=== PATIENT | female | born 1995 | race Caucasian/White ===

== ENCOUNTER → 2020-03-12 14:13 | Outpatient (BNVA) | payer MEDICAID, SELFPAY | PROVIDERS: Visit Provider Advanced Practice Midwife | DX: Z76.89 Persons encountering health services in other specified circumstances (principal) ==

== ENCOUNTER 2020-03-19 10:42 | Outpatient (REF) | payer MEDICAID, SELFPAY ==
[2020-03-19 11:55] LABS: MANUAL DIFF FLAG NO
[2020-03-19 12:06] LABS: Basophils Percent Auto 0.3 % (0-2); Eosinophils Absolute Auto 0.1 X10*3/uL (0.0-0.4); Eosinophils Percent Auto 1.2 % (0-4); Hematocrit 37.1 % (37-47); Hemoglobin 12.6 g/dl (12.0-16.0); Imm Gran Abs Auto 0.01 X10*3/uL (0.00-0.03); Imm Gran Pct Auto 0.2 % (0.0-0.4); Lymphocytes Absolute Auto 1.6 X10*3/uL (1.2-4.9); Lymphocytes Percent Auto 27.4 % (20-40); Mean Corpuscular Volume 91.2 fL (80-98); Mean Platelet Volume 10.7 fL (9.4-12.3); Monocytes Absolute Auto 0.4 X10*3/uL (0.1-1.2); Monocytes Percent Auto 6.5 % (2-11); Neutrophils Absolute Auto 3.8 X10*3/uL (2.0-8.3); Neutrophils Percent Auto 64.4 % (45-73); Platelet Count 218 X10*3/uL (160-400); Red Blood Count 4.07 X10*6/uL (4.20-5.50); Red Cell Distribution Width 12.6 % (11.0-16.0); White Blood Count 5.9 X10*3/uL (4.8-10.8)
[2020-03-19 12:28] LABS: Amphetamine Screen Urine Not Detected (Not Detect); Barbiturates, Urine Not Detected (Not Detect); Benzodiazepines Screen Urine Not Detected (Not Detect); Cannabinoid Screen Urine Not Detected (Not Detect); Cocaine Screen Urine Not Detected (Not Detect); Opiate Screen Urine Not Detected (Not Detect); Phencyclidine Screen Urine Not Detected (Not Detect)
[2020-03-19 13:10] LABS: Syphilis Screen Nonreactive (Nonreactive)
[2020-03-20 04:36] LABS: HBsAGNum1 0.38 S/CO (0.00-0.99); HIV AB/AG Nonreactive (Nonreactive); HIV Num 1 0.06 S/CO (0.00-0.99); Hepatitis B Surface Antigen Negative (Negative)
[2020-03-20 04:48] LABS: ~HepC Num1 0.11 S/CO (0.00-0.79); ~Hepatitis C Antibody Nonreactive (Nonreactive)
[2020-03-20 22:22] LABS: Rubella IgG Antibody 3.33 index
== END 2020-03-19 10:43 | disposition home or self-care (01) ==
LOC: HO.LAB 10:42
PROVIDERS: Visit Provider Advanced Practice Midwife
DX: Z34.90 Encounter for supervision of normal pregnancy, unspecified, unspecified trimester (principal); Z3A.00 Weeks of gestation of pregnancy not specified
CPT/HCPCS: 36415; 80307; 85025; 86762; 86780; 86787; 86803; 86850; 86900; 86901; 87086; 87340; 87389

== ENCOUNTER 2020-03-21 13:21 | Outpatient (REF) | payer MEDICAID, SELFPAY ==
--- NOTE | 2020-03-21 13:34 | US_ITS ---
EXAMINATION: OBSTETRICAL ULTRASOUND, FIRST TRIMESTER HISTORY: 24-year-old at 11.2 weeks of gestation NT screening COMPARISON: 02/20/2020 TECHNIQUE: Real time transabdominal imaging with color and M-mode Doppler. FINDINGS: A single, live IUP CRL of 43.6 mm c/w 11.2wks is noted. Heart Rate: 163 beats per minute. Normal yolk sac seen. NT was 0.7.mm. NB Present The embryo appears sonographically wnl for this GA. Both maternal ovaries are seen and appear normal. GESTATIONAL AGE: 1. Established GA: 11.2 wks 2. GA from [facility]: 11.2 wks ESTIMATED DATE OF DELIVERY: 1. Established TERESITA: 10/08/2020 2. TERESITA from [facility]: 10/08/2020 US/US OB 1T nuc measure IMPRESSION: 1. A single live IUP 2. Size equals dates 3. NT of 0.7 mm MFM Consultation: I reviewed the ultrasound findings along with significance of NT measurement. The NT of less than 3mm is generally reassuring. However, the sensitivity for T21 detection is only 60%. I reviewed the availability of serum aneuploidy screening which includes cell-free DNA and placental protein based tests. I discussed the sensitivity, false-positive rate, and other limitations associated with each test. I also reviewed the availability of invasive diagnostic tests that are associated small but definite risk of miscarriage. We also reviewed the differences between screening tests and diagnostic tests. After our discussion, she opted for the First trimester screening that is based on cell-free DNA or non-invasive testing (NIPT). The result will be faxed to your office in approximately 7 days. A follow up at 18 weeks for survey has been scheduled. Thank you very much for this referral. Majority of this visit was spent reviewing her care and counselling her in face to face time: Time spent 20 min.
== END 2020-03-21 13:22 | disposition home or self-care (01) ==
LOC: HO.US 13:21
PROVIDERS: PCP Advanced Practice Midwife; Visit Provider Advanced Practice Midwife
DX: Z34.90 Encounter for supervision of normal pregnancy, unspecified, unspecified trimester (principal); Z36.82 Encounter for antenatal screening for nuchal translucency
CPT/HCPCS: 76813

== ENCOUNTER 2020-03-26 12:35 | Outpatient (REF) | payer MEDICAID, SELFPAY | END 2020-03-26 12:36 | disposition home or self-care (01) | LOC: HO.LAB 12:35 | PROVIDERS: Visit Provider Advanced Practice Midwife | DX: Z23 Encounter for immunization (principal); O26.899 Other specified pregnancy related conditions, unspecified trimester; N63.0 Unspecified lump in unspecified breast; N83.291 Other ovarian cyst, right side | CPT/HCPCS: 88142; 90686 ==

== ENCOUNTER 2020-03-26 16:59 | Outpatient (REF) | payer MEDICAID, SELFPAY ==
[2020-03-27 02:28] LABS: CT PCR NOT DETECTED (Not Detect.); NG PCR NOT DETECTED (Not Detect.)
== END 2020-03-26 17:00 | disposition home or self-care (01) ==
LOC: HO.LNP 16:59
PROVIDERS: Visit Provider Advanced Practice Midwife
DX: Z34.80 Encounter for supervision of other normal pregnancy, unspecified trimester (principal)
CPT/HCPCS: 87491; 87591

== ENCOUNTER 2020-04-01 13:00 | Outpatient (REF) | payer MEDICAID, SELFPAY ==
--- NOTE | 2020-04-01 | US_ITS ---
EXAMINATION: US DIAGNOSTIC ULTRASOUND BREAST, RIGHT CLINICAL INFORMATION: Right breast lump felt by the referring provider at 4 o'clock. COMPARISON: None. TECHNIQUE: Targeted right breast ultrasound is performed with real-time dueñas scale imaging and color Doppler. FINDINGS: There is no focal suspicious finding. There is no solid mass, architectural abnormality, duct ectasia, or edema in the soft tissue planes. Results are discussed with the patient at time of visit. US/US breast RT limited IMPRESSION: No sonographic evidence of malignancy or other significant finding in the area of clinical concern in the right breast lower inner quadrant. ASSESSMENT: BI-RADS 1: Negative RECOMMENDATION: 1. Patient should be managed based on the clinical impression. Decision to proceed with biopsy should be based on clinical grounds and degree of clinical concern. 2. According to current [employer] guidelines patient should return for screening mammography at age of 39 years, unless clinically indicated otherwise.
== END 2020-04-01 13:01 | disposition home or self-care (01) ==
LOC: HO.MAMMO 13:00
PROVIDERS: PCP Advanced Practice Midwife; Visit Provider Advanced Practice Midwife
DX: N63.0 Unspecified lump in unspecified breast (principal)
CPT/HCPCS: 76642

== ENCOUNTER → 2020-04-22 11:42 | Outpatient (BNVA) | payer MEDICAID, SELFPAY | PROVIDERS: Visit Provider Advanced Practice Midwife | DX: Z76.89 Persons encountering health services in other specified circumstances (principal) ==

== ENCOUNTER 2020-05-16 10:15 | Outpatient (REF) | payer MEDICAID, SELFPAY ==
--- NOTE | 2020-05-16 10:19 | US_ITS ---
EXAMINATION: US OBSTETRICAL CLINICAL INFORMATION: 24-year-old at 19.2 weeks Suspected anomaly COMPARISON: 03/21/2020 TECHNIQUE: Real-time transabdominal ultrasound was performed using C1-5 megahertz transducer. FINDINGS: A single, active, fetus is seen in breech presentation. The placenta is fundal, and the amniotic fluid volume is wnl. MEASUREMENTS: 1. Biparietal Diameter: 4.2 cm; 18.5 wks 2. Occipital Frontal Diameter: 5.8 cm 3. Head Circumference: 16.2 cm; 19.0 wks 4. Abdominal Circumference: 14.6 cm; 20.0 wks 5. Femur Length: 2.94 cm; 19.1 wks 6. Humerus Length: 2.94 cm; 19.5 wks 7. Tibia Length: 2.62 cm; 19.3 wks 8. Ulna Length: 2.59 cm; 19.3 wks 9. Lateral ventricle: 0.69 cm 10. Cerebellum: 1.96 cm; 20.1 wks 11. Cisterna Magna: 0.37 cm 12. Nuchal Fold: 3.1 mm 13. Heart Rate: 158 beats per minute Rt ovary: normal Lt ovary: normal Cervical length 3.9 cm on T/A. GESTATIONAL AGE: 1. Established GA: 19.2 wks 2. GA from [facility]: 19.2 wks ESTIMATED DATE OF DELIVERY: 1. Established TERESITA: 10/08/2020 2. TERESITA from [facility]: 10/08/2020 ANATOMY: Bilateral pyelectasis ease were noted. Renal pelvises measured 0.5 cm. Ureters not visible. Urinary bladder is within normal limits. The visualized anatomy includes but not limited to: 1. Cranium: Normal 2. Intracranial anatomy: cavum septum pellucidi, lateral ventricles, choroid plexus, cerebellum, posterior fossa, third and fourth ventricles. 3. face: orbits, lip/palate, profile, nasal bone 4. Heart: four-chamber view of the heart, ventricular septum, foramen ovale, pulmonary vein, left and right outflow tracts, three-vessel view, 3 vessel trachea view, aortic and ductal arches, situs.. 5. Diaphragm: Normal 6. Abdominal wall: Normal 7. Cord Insertion: Normal 8. Spine: Cervical, thoracic, lumbar, sacral. 9. Stomach: Normal size and shape 10. Right Kidney: 0.5 cm 11. Left Kidney: 0.5 cm 12. 3 vessel cord: Normal 13. Upper extremity: Open hands, fifth digit. 14. Lower extremity: Tibia, fibula, bilateral feet. 15. Bladder: Normal 16. Genitalia: Male, patient aware US/US OB /maternal detail IMPRESSION: 1. Single, living, intrauterine with appropriate biometry. 2. Bilateral pyelectasis without hydroureter. 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 3. Normal amniotic fluid DISCUSSION: I reviewed today's ultrasound findings. We discussed the limitations of ultrasound in diagnosing aneuploidy and other congenital abnormalities. I reviewed the differences between screening test and diagnostic test. Amniocentesis was discussed and declined. I reviewed the approximate prognosis and management of the degenerative reflux. Gave her reassurance that it is a benign condition that resolves spontaneously in majority of the cases. Rarely a pediatric follow-up and evaluation may be needed. She was informed that the baseline incidence of congenital abnormalities is approximately 3-5%. Not all these conditions are diagnosable in utero. RECOMMENDATIONS: 1. A follow-up has been scheduled in 6 weeks. Thank you for allowing me to participate in her care. Visiting time 25 minutes. Majority of this visit was spent reviewing and discussing her care.
== END 2020-05-16 10:16 | disposition home or self-care (01) ==
LOC: HO.US 10:15
PROVIDERS: PCP Internal Medicine; Visit Provider Advanced Practice Midwife
DX: N83.291 Other ovarian cyst, right side (principal)
CPT/HCPCS: 76811

== ENCOUNTER → 2020-05-20 14:48 | Outpatient (BNVA) | payer MEDICAID, SELFPAY | PROVIDERS: Visit Provider Advanced Practice Midwife | DX: O35.9XX0 Maternal care for (suspected) fetal abnormality and damage, unspecified, not applicable or unspecified (principal) | CPT/HCPCS: 81002; 99212 ==

== ENCOUNTER → 2020-06-17 12:57 | Outpatient (BNVA) | payer MEDICAID, SELFPAY | PROVIDERS: Visit Provider Advanced Practice Midwife | DX: Z76.89 Persons encountering health services in other specified circumstances (principal) | CPT/HCPCS: 99212 ==

== ENCOUNTER 2020-06-27 10:34 | Outpatient (REF) | payer MEDICAID, SELFPAY ==
--- NOTE | 2020-06-27 10:39 | US_ITS ---
EXAMINATION: OBSTETRICAL ULTRASOUND, Follow up HISTORY: A 24-year-old at the 25.2 weeks of gestation Bilateral pyelectasis Size date discrepancy COMPARISON: 05/16/2020 TECHNIQUE: Real time transabdominal imaging with color and M-mode Doppler. PRESENTATION: Vertex PLACENTA LOCATION: Fundal AMNIOTIC FLUID: Normal MEASUREMENTS: 1. Biparietal Diameter: 6.2 cm; 25.1 wks 2. Head Circumference: 23.0 cm; 25.1 wks 3. Abdominal Circumference: 21.61 cm; 26.1 wks 4. Femur Length: 4.6 cm; 25.1 wks 5. Heart Rate: 156 beats per minute WEIGHT: Estimated weight is 827 grams (1 lbs 13 oz) -- 53 %. Bilateral renal pelvises sees measured within normal limits. Right was 0.42 cm. The left was 0.55 cm. Normal views of lateral cerebral ventricle, profile, nose/lips, 4ch view. GESTATIONAL AGE: 1. Established GA: 25.2 wks 2. GA from [facility]: 25.3 wks ESTIMATED DATE OF DELIVERY: 1. Established TERESITA: 10/08/2020 2. TERESITA from [facility]: 10/07/2020 US/US OB follow up IMPRESSION: 1. A single fetus with appropriate interval growth. 2. Pyelectasis resolved 3. Normal amniotic fluid volume. RECOMMENDATIONS: 1. f/u PRN Thank you very much for this referral.
== END 2020-06-27 10:35 | disposition home or self-care (01) ==
LOC: HO.US 10:34
PROVIDERS: Visit Provider Advanced Practice Midwife
DX: O35.9XX0 Maternal care for (suspected) fetal abnormality and damage, unspecified, not applicable or unspecified (principal); Z3A.00 Weeks of gestation of pregnancy not specified
CPT/HCPCS: 76816

== ENCOUNTER 2020-07-15 12:50 | Outpatient (REF) | payer MEDICAID, SELFPAY ==
[2020-07-15 15:44] LABS: Hemoglobin 11.9 g/dl (12.0-16.0); Mean Corpuscular Hemoglobin 30.9 pg (27.0-33.0); Mean Corpuscular Volume 90.9 fL (80-98); Mean Platelet Volume 10.3 fL (9.4-12.3); Platelet Count 232 X10*3/uL (160-400); Red Blood Count 3.85 X10*6/uL (4.20-5.50); Red Cell Distribution Width 13.6 % (11.0-16.0); White Blood Count 8.9 X10*3/uL (4.8-10.8)
[2020-07-15 15:53] LABS: Glucose 1 Hour PP 50gm Dose 95 mg/dL (60-140)
[2020-07-15 16:21] LABS: TSH reflex Free T4 (Prenatal) 3.85 uIU/mL (0.32-4.0)
[2020-07-16 08:31] LABS: HIV AB/AG Nonreactive (Nonreactive); HIV Num 1 0.05 S/CO (0.00-0.99)
[2020-07-16 08:58] LABS: Syphilis Screen Nonreactive (Nonreactive)
== END 2020-07-15 12:51 | disposition home or self-care (01) ==
LOC: HO.LAB 12:50
PROVIDERS: Visit Provider Advanced Practice Midwife
DX: O26.892 Other specified pregnancy related conditions, second trimester (principal); R94.6 Abnormal results of thyroid function studies; O34.82 Maternal care for other abnormalities of pelvic organs, second trimester; N83.291 Other ovarian cyst, right side; Z3A.27 27 weeks gestation of pregnancy
CPT/HCPCS: 36415; 81003; 84439; 85027; 86780; 87389; 90471; 90715; 99212

== ENCOUNTER → 2020-07-29 09:36 | Outpatient (BNVA) | payer MEDICAID, SELFPAY | PROVIDERS: Visit Provider Advanced Practice Midwife | DX: Z34.80 Encounter for supervision of other normal pregnancy, unspecified trimester (principal) | CPT/HCPCS: 81003; 99212 ==

== ENCOUNTER → 2020-08-06 09:51 | Outpatient (BNVA) | payer MEDICAID, SELFPAY | PROVIDERS: Visit Provider Obstetrics & Gynecology | DX: Z34.90 Encounter for supervision of normal pregnancy, unspecified, unspecified trimester (principal); Z3A.31 31 weeks gestation of pregnancy | CPT/HCPCS: 99212 ==

== ENCOUNTER → 2020-08-13 09:56 | Outpatient (BNVA) | payer MEDICAID, SELFPAY | PROVIDERS: Visit Provider Advanced Practice Midwife | DX: Z3A.32 32 weeks gestation of pregnancy (principal) | CPT/HCPCS: 81003; 99212 ==

== ENCOUNTER → 2020-08-27 09:57 | Outpatient (BNVA) | payer MEDICAID, SELFPAY | PROVIDERS: Visit Provider Obstetrics & Gynecology | DX: Z34.80 Encounter for supervision of other normal pregnancy, unspecified trimester (principal); Z3A.34 34 weeks gestation of pregnancy | CPT/HCPCS: 99212 ==

== ENCOUNTER 2020-09-10 09:19 | Outpatient (REF) | payer MEDICAID, SELFPAY | END 2020-09-10 09:20 | disposition home or self-care (01) | LOC: HO.LAB 09:19 | PROVIDERS: Visit Provider Advanced Practice Midwife | DX: O26.893 Other specified pregnancy related conditions, third trimester (principal); O47.03 False labor before 37 completed weeks of gestation, third trimester; R12 Heartburn; Z3A.36 36 weeks gestation of pregnancy | CPT/HCPCS: 81003; 87081; 87147; 87491; 87591; 99212 ==

== ENCOUNTER → 2020-09-19 09:14 | Outpatient (BNVA) | payer MEDICAID, SELFPAY | PROVIDERS: Visit Provider Obstetrics & Gynecology | DX: Z34.80 Encounter for supervision of other normal pregnancy, unspecified trimester (principal); Z3A.37 37 weeks gestation of pregnancy | CPT/HCPCS: 81003; 99212 ==

== ENCOUNTER → 2020-09-26 10:47 | Outpatient (BNVA) | payer MEDICAID, SELFPAY | PROVIDERS: Visit Provider Advanced Practice Midwife | DX: Z34.93 Encounter for supervision of normal pregnancy, unspecified, third trimester (principal); Z3A.38 38 weeks gestation of pregnancy | CPT/HCPCS: 81003; 99212 ==

== ENCOUNTER → 2020-10-03 10:45 | Outpatient (BNVA) | payer MEDICAID, SELFPAY | PROVIDERS: Visit Provider Advanced Practice Midwife | DX: Z34.93 Encounter for supervision of normal pregnancy, unspecified, third trimester (principal); Z3A.39 39 weeks gestation of pregnancy | CPT/HCPCS: 81003; 99212 ==

== ENCOUNTER → 2020-11-17 09:34 | Outpatient (BNVA) | payer MEDICAID, SELFPAY | PROVIDERS: Visit Provider Advanced Practice Midwife | DX: N83.291 Other ovarian cyst, right side (principal); N61.0 Mastitis without abscess; Z39.2 Encounter for routine postpartum follow-up; Z30.013 Encounter for initial prescription of injectable contraceptive; Z39.1 Encounter for care and examination of lactating mother | CPT/HCPCS: 81025; 99212 ==

== ENCOUNTER 2020-11-20 14:36 | Outpatient (REF) | payer MEDICAID, SELFPAY ==
--- NOTE | ~2020-11-20 | US_ITS ---
EXAMINATION: US PELVIS CLINICAL INFORMATION: Right ovarian cyst. Patient is 6 weeks . COMPARISON: Pelvis ultrasound 02/20/2020. TECHNIQUE: Ultrasound of the pelvis is performed using both transabdominal and transvaginal transducers along with Doppler. Transvaginal imaging is performed due to inadequate visualization transabdominally. FINDINGS: Uterus: The uterus is anteverted and measures 9.3 x 4.1 x 5.5 cm. The double wall endometrial thickness is 5 mm. The uterus is mildly enlarged and demonstrates prominent myometrial vessels, with trace fluid in the endometrial canal and cervix, compatible with appearance. No visible fibroid. Adnexa: Both ovaries are visualized. There is normal color flow to the adnexa. There is no ovarian torsion. There is no pelvic ascites or fluid collection. Right ovary measures 3.3 x 2.2 x 2.5 cm. Estimated volume is 9.4 mL. Left ovary measures 2.5 x 2.0 x 1.9 cm. Estimated volume is 5.3 mL. No dominant ovarian cyst or mass is demonstrated. Right ovarian cyst seen on the previous ultrasound is no longer visualized. US/US pelvic and transvaginal IMPRESSION: Expected appearance of the uterus. The ovaries are unremarkable. No ovarian cyst is demonstrated. Previously seen right ovarian cyst is no longer visualized.
== END 2020-11-20 14:37 | disposition home or self-care (01) ==
LOC: HO.HMGCX 14:36
PROVIDERS: Visit Provider Advanced Practice Midwife
DX: N83.291 Other ovarian cyst, right side (principal)
CPT/HCPCS: 76830; 76856

== ENCOUNTER → 2020-12-08 15:49 | Outpatient (BNVA) | payer MEDICAID, SELFPAY | PROVIDERS: Visit Provider Advanced Practice Midwife | DX: N83.291 Other ovarian cyst, right side (principal); Z71.2 Person consulting for explanation of examination or test findings | CPT/HCPCS: 99212 ==

== ENCOUNTER 2022-07-12 16:14 | Emergency (ER) | payer MEDICAID, SELFPAY ==
--- NOTE | ~2022-07-12 | CT_ITS ---
EXAMINATION: CT ABDOMEN AND PELVIS WITH CONTRAST CLINICAL INFORMATION: Periumbilical pain radiating to the right lower quadrant. Tenderness at the right lower quadrant. COMPARISON: None TECHNIQUE: Multidetector volumetric images were obtained from the superior aspect of the liver through the pubic symphysis following administration 85 mL of Omnipaque 350 intravenous contrast. Sagittal and coronal reformatted images were obtained on the technologist's workstation. Oral contrast: No This CT examination was performed using dose optimization techniques as appropriate, variously including the following: *Automated exposure control *Adjustment of mA and/or kV according to patient size (this includes techniques or standardized protocols for targeted exams where dose is matched to indication/reason for exam; i.e. extremities or head) *Use of iterative reconstruction technique DLP: 795 mGy-cm FINDINGS: LUNG BASES: The visualized lung bases are unremarkable. LIVER, GALLBLADDER, AND BILIARY TREE: The liver is normal in size, shape, and attenuation. No focal hepatic lesion or biliary ductal dilatation is present. The gallbladder is unremarkable with no evidence of radiopaque gallstones, gallbladder wall thickening, or obvious pericholecystic inflammatory changes. PANCREAS: Unremarkable. SPLEEN: Unremarkable. ADRENAL GLANDS: Unremarkable. KIDNEYS AND URETERS: The kidneys are normal in size, shape, and attenuation. No hydronephrosis, hydroureter, or calculi seen. No perinephric stranding. BLADDER: Unremarkable. GASTROINTESTINAL TRACT: The small and large bowel are unremarkable. The appendix is unremarkable. ABDOMINAL WALL: Rectus diastases at the level of the umbilicus with eventration of the abdominal wall. LYMPH NODES: Normal. VASCULAR: Unremarkable. PELVIC VISCERA: The uterus and adnexa are unremarkable. Tampon in place. OSSEOUS STRUCTURES: Unremarkable. CT/CT abdomen pelvis w IV con IMPRESSION: No acute findings of the abdomen or pelvis. Normal appendix. Fleischner guidelines were followed.
[2022-07-12 17:16] VITALS: BP 121/69; PULSE 69; RESP 18; TEMP 36.8; O2SAT 100; BMI 39.8
--- NOTE | 2022-07-12 17:20 | ED.ABDPAIN ---
HPI - Abdominal Pain General Chief Complaint: General Medical <FANNY Guzman - Last Filed: 07/12/22 17:25> Stated Complaint: navel pain down right side <FANNY Guzman - Last Filed: 07/12/22 17:25> Time Seen by Provider: 07/12/22 17:34 <FANNY Guzman - Last Filed: 07/12/22 17:25> Source: patient <Toryevie Boyce MARIA LUISA Restrepo - Last Filed: 07/12/22 19:01> Mode of arrival: ambulatory <Tory Restrepo CNP - Last Filed: 07/12/22 19:01> Limitations: no limitations <Tory Restrepo CNP - Last Filed: 07/12/22 19:01> History of Present Illness HPI narrative: Patient is a 26-year-old female who presents emergency department for evaluation of abdominal pain. Reports onset of pain to be approximately 1 week ago. She attributed this to an umbilical hernia which has been present for the past 2 years since giving to her son. However, over the past week the area has become painful which she has never been in the past, is tender to touch. Pain radiates into the right lower quadrant. Heavy lifting/certain movements tends to make pain worse. She reports associated nausea with this but no vomiting. Denies fevers, chills, pelvic pain, abnormal vaginal discharge, urinary frequency/urgency/hesitancy, dysuria, currently menstruating, denies possibility of . <Tory Restrepo CNP - Last Filed: 07/12/22 19:01> Related Data Home Medications: Home Medications Medication Instructions Recorded Confirmed vitamin with calcium 1 tab PO DAILY 03/13/20 11/17/20 no.72-iron 27 mg-folic acid 1 mg tablet ( Vitamins Plus Low Iron) Previous Rx's Medication Instructions Recorded doxylamine succinate 25 mg tablet 12.5 mg PO BEDTIME PRN sleep #30 03/13/20 (Unisom (doxylamine)) tabs famotidine 20 mg tablet (Pepcid) 20 mg PO BID #30 tabs 09/10/20 amoxicillin 875 mg-potassium 1 tab PO BID 7 days #14 tabs 11/09/20 clavulanate 125 mg tablet (Augmentin) medroxyprogesterone 150 mg/mL 150 mg IM [id number] #1 mL 11/17/20 intramuscular suspension (Depo-Provera) <FANNY Guzman - Last Filed: 07/12/22 17:25> Allergies/Adverse Reactions: Allergies Allergy/AdvReac Type Severity Reaction Status Date / Time No Known Allergies Allergy Verified 07/12/22 17:23 [No Known Allergies*] <FANNY Guzman - Last Filed: 07/12/22 17:25> Review of Systems Review of Systems Constitutional : No Weight loss, No Fever, No Chills ENT/Mouth :? No sore throat, No Rhinorrhea Eyes: No Swelling, No Redness Cardiovascular : No Chest Pain, No SOB, No Edema Respiratory : No Cough, No Sputum, No Wheezing Gastrointestinal : Positive Nausea, no Vomiting, no Diarrhea, positive abdominal pain, No Hematochezia, No Melena Genitourinary : No Dysuria, No Urinary Frequency, No Hematuria, No Urgency? Musculoskeletal : No joint pain, No Myalgias, No Joint Swelling Skin : No Skin Lesions, No rash Neuro : No Weakness, No Numbness, No Dizziness, No Headache Psych : No Anxiety/Panic, No Depression Heme/Lymph: No Bruising, No Lymphadenopathy Endocrine : No Polyuria, No Polydipsia <Tory Restrepo CNP - Last Filed: 07/12/22 19:01> Yes all other systems are reviewed and are negative <Tory Restrepo CNP - Last Filed: 07/12/22 19:01> [facility] Past Medical History Attestation statement: The following information was validated with the patient. <Tory Restrepo CNP - Last Filed: 07/12/22 19:01> Source: old records reviewed <Tory Restrepo CNP - Last Filed: 07/12/22 19:01> Family History Family History: Family History Mother Hx of thyroid disease Hx of chronic inflammatory arthritis Father No problems noted. Maternal Grandmother History of high blood pressure Maternal Grandfather No problems noted. Paternal Grandmother No problems noted. Paternal Grandfather Hx of schizophrenia <FANNY Guzman - Last Filed: 07/12/22 17:25> Social History Social History: Social History Household Members: Spouse and Children Alcohol intake: never Advance Directives: No Advance Directives Information Provided: No Gender identity: Female <FANNY Guzman - Last Filed: 07/12/22 17:25> Physical Exam ED Vital Signs: Vital Signs - 24 hr 07/12/22 17:16 Temperature 98.3 F Pulse Rate 69 Respiratory Rate 18 Blood Pressure 121/69 Pulse Oximetry 100 Oxygen Delivery Method Room Air BMI result Body Mass Index 39.8 <FANNY Guzman - Last Filed: 07/12/22 17:25> Vital Signs - 24 hr 07/12/22 17:16 Temperature 98.3 F Pulse Rate 69 Respiratory Rate 18 Blood Pressure 121/69 Pulse Oximetry 100 Oxygen Delivery Method Room Air BMI result Body Mass Index 39.8 <Tory Restrepo CNP - Last Filed: 07/12/22 19:01> Vital Signs - 24 hr 07/12/22 17:16 Temperature 98.3 F Pulse Rate 69 Respiratory Rate 18 Blood Pressure 121/69 Pulse Oximetry 100 Oxygen Delivery Method Room Air BMI result Body Mass Index 39.8 <FANNY Reeder - Last Filed: 07/12/22 20:31> Appearance: Alert.?Oriented to person, place and time. No acute distress.?Normal affect. Eyes: Pupils equal, round and reactive to light.? ENT: Pharynx normal.?? Neck: Normal inspection.? Neck supple.?? CVS: Heart sounds normal. Normal heart rate and rhythm.? Pulses normal.?? Respiratory: No respiratory distress.? Lung sounds clear to auscultation bilaterally?? Abdomen: Soft with tenderness upon palpation over the periumbilical region as well as right lower quadrant. No palpable hernia upon examination. Does not have rebound tenderness. No rigidity. No guarding.. Normoactive bowel sounds.?? Skin: Skin warm and dry.? Normal skin color.? Extremities: No lower extremity edema.? Neuro: Moves all extremities spontaneously. Sensation intact bilaterally.. Ambulates with normal steady gait. <Tory Restrepo CNP - Last Filed: 07/12/22 19:01> Course Course Course Narrative: RME - 26 yo female presenting with periumbilical abdominal pain for the last 1 week that she attributes to an umbilical hernia. She has had it for the last 2 years since the of her son but last week tif is very tender to touch. Lifting causes severe pain. No vomiting but reports nausea. <FANNY Guzman - Last Filed: 07/12/22 17:25> Reevaluation(s) Reevaluation #1: Labs, urinalysis, and CT are pending at this time. Patient signed out to Cortney ESCOBEDO pending results and re-evaluation. <Tory Restrepo CNP - Last Filed: 07/12/22 19:01> Time: 18:56 <Tory Restrepo CNP - Last Filed: 07/12/22 19:01> Reevaluation #2: Chemistry acute findings. CT of the abdomen pelvis with no acute findings. Normal appendix. Patient feeling better. Educated patient on diagnosis and treatment plan, answered all question, patient verbalizes understanding. At this time patient will be discharged home, advised to return with new or worsening symptoms. Educated on worrisome signs and symptoms and when to return. At this time I feel comfortable discharge home. <FANNY Reeder - Last Filed: 07/12/22 20:31> Time: 20:30 <FANNY Reeder - Last Filed: 07/12/22 20:31> Medical Decision Making Medical Decision Making MDM Narrative: Patient is a 26 year old female with reported past medical history presents emergency department for evaluation of abdominal pain. At the time of examination she is over well-appearing, nontoxic. Patient is without CVA tenderness, I have a low suspicion for pyelonephritis, ureteral calculi, hydronephrosis. Will obtain urinalysis for evaluation of urinary tract infection, in addition to testing, although she is currently menstruating without pelvic complaints this time. I suspect pelvic infection to be less likely, lower suspicion for ovarian torsion given history and physical examination. Will obtain CT of the abdomen and pelvis for further evaluation abdominal etiology. Patient received 1 L normal saline IVF, ketorolac IV for pain, disposition pending results. <Tory Restrepo CNP - Last Filed: 07/12/22 19:01> Differential Diagnosis Differential Diagnoses: The differential diagnosis associated with the presentation includes (Urinary tract infection, pyelonephritis, ureteral calculi, hydronephrosis, pelvic infection, ovarian torsion, appendicitis, diverticulitis, colitis, bowel obstruction, umbilical hernia, strangulated/gangrenous hernia ) <Tory Restrepo CNP - Last Filed: 07/12/22 19:01> Lab Data MDM Lab Attestation statement: I reviewed the patient's lab results. <Tory Restrepo CNP - Last Filed: 07/12/22 19:01> Result Diagrams: 07/12/22 18:32 07/12/22 18:32 <FANNY Guzman - Last Filed: 07/12/22 17:25> Labs: Lab Results 07/12/22 07/12/22 07/12/22 Range/Units 18:32 18:32 18:32 WBC 7.8 (4.8-10.8) X10*3/uL RBC 4.32 (4.20-5.50) X10*6/uL Hgb 12.6 (12.0-16.0) g/dl Hct 38.2 (37.0-47.0) % MCV 88.4 (80.0-98.0) fL MCH 29.2 (27.0-33.0) pg MCHC 33.0 (31.0-35.0) g/dl RDW 13.5 (11.0-16.0) % Plt Count 274 (160-400) X10*3/uL MPV 9.9 (9.4-12.3) fL Immature Gran % (Auto) 0.3 (0.0-0.4) % Neut % (Auto) 50.3 (45-73) % Lymph % (Auto) 39.9 (20-40) % [place] % (Auto) 6.0 (2-11) % Eos % (Auto) 3.1 (0-4) % Baso % (Auto) 0.4 (0-2) % Lymph # (Auto) 3.1 (1.2-4.9) X10*3/uL [place] # (Auto) 0.5 (0.1-1.2) X10*3/uL Eos # (Auto) 0.2 (0.0-0.4) X10*3/uL Baso # (Auto) 0.0 (0.0-0.2) X10*3/uL Abs Immat Gran (auto) 0.02 (0.00-0.03) X10*3/uL Absolute Neuts (auto) 3.9 (2.0-8.3) x10*3/uL Absolute Nucleated RBC 0.000 (0.0-0.012) X10*3/uL Nucleated RBC % (auto) 0.0 (0.0-0.2) /100WBC ESR (0-20) MM/HR Sodium 139 (135-145) mmol/L Potassium 3.7 (3.3-5.1) mmol/L Chloride 106 (96-108) mmol/L Carbon Dioxide 25 (22-29) mmol/L Anion Gap 12 (12-20) BUN 8 L (9-16) mg/dL Creatinine 0.77 (0.5-1.4) mg/dL Estim Creat Clear Calc 125.1 Estimated GFR > 60 Random Glucose 89 (60-115) mg/dL Lactic Acid 0.6 (0.5-2.0) mmol/L Calcium 9.2 (8.4-10.2) mg/dL Magnesium 2.1 (1.6-2.6) mg/dL Total Bilirubin 0.4 (0.0-1.0) mg/dL Direct Bilirubin < 0.2 (0.0-0.5) mg/dL AST 17 (5-31) U/L ALT 12 (0-31) U/L Alkaline Phosphatase 50 (39-117) U/L C-Reactive Protein (< or = 0.50) mg/dL Total Protein 7.0 (6.5-8.0) g/dL Albumin 4.5 (3.5-5.0) g/dL Beta HCG, Quant < 2 mIU/mL 07/12/22 07/12/22 Range/Units 18:32 18:32 WBC (4.8-10.8) X10*3/uL RBC (4.20-5.50) X10*6/uL Hgb (12.0-16.0) g/dl Hct (37.0-47.0) % MCV (80.0-98.0) fL MCH (27.0-33.0) pg MCHC (31.0-35.0) g/dl RDW (11.0-16.0) % Plt Count (160-400) X10*3/uL MPV (9.4-12.3) fL Immature Gran % (Auto) (0.0-0.4) % Neut % (Auto) (45-73) % Lymph % (Auto) (20-40) % [place]rien % (Auto) (2-11) % Eos % (Auto) (0-4) % Baso % (Auto) (0-2) % Lymph # (Auto) (1.2-4.9) X10*3/uL [place] # (Auto) (0.1-1.2) X10*3/uL Eos # (Auto) (0.0-0.4) X10*3/uL Baso # (Auto) (0.0-0.2) X10*3/uL Abs Immat Gran (auto) (0.00-0.03) X10*3/uL Absolute Neuts (auto) (2.0-8.3) x10*3/uL Absolute Nucleated RBC (0.0-0.012) X10*3/uL Nucleated RBC % (auto) (0.0-0.2) /100WBC ESR 13 (0-20) MM/HR Sodium (135-145) mmol/L Potassium (3.3-5.1) mmol/L Chloride (96-108) mmol/L Carbon Dioxide (22-29) mmol/L Anion Gap (12-20) BUN (9-16) mg/dL Creatinine (0.5-1.4) mg/dL Estim Creat Clear Calc Estimated GFR Random Glucose (60-115) mg/dL Lactic Acid (0.5-2.0) mmol/L Calcium (8.4-10.2) mg/dL Magnesium (1.6-2.6) mg/dL Total Bilirubin (0.0-1.0) mg/dL Direct Bilirubin (0.0-0.5) mg/dL AST (5-31) U/L ALT (0-31) U/L Alkaline Phosphatase (39-117) U/L C-Reactive Protein 0.11 (< or = 0.50) mg/dL Total Protein (6.5-8.0) g/dL Albumin (3.5-5.0) g/dL Beta HCG, Quant mIU/mL <FANNY Guzman - Last Filed: 07/12/22 17:25> Lab Results 07/12/22 07/12/22 07/12/22 Range/Units 18:32 18:32 18:32 WBC 7.8 (4.8-10.8) X10*3/uL RBC 4.32 (4.20-5.50) X10*6/uL Hgb 12.6 (12.0-16.0) g/dl Hct 38.2 (37.0-47.0) % MCV 88.4 (80.0-98.0) fL MCH 29.2 (27.0-33.0) pg MCHC 33.0 (31.0-35.0) g/dl RDW 13.5 (11.0-16.0) % Plt Count 274 (160-400) X10*3/uL MPV 9.9 (9.4-12.3) fL Immature Gran % (Auto) 0.3 (0.0-0.4) % Neut % (Auto) 50.3 (45-73) % Lymph % (Auto) 39.9 (20-40) % [place] % (Auto) 6.0 (2-11) % Eos % (Auto) 3.1 (0-4) % Baso % (Auto) 0.4 (0-2) % Lymph # (Auto) 3.1 (1.2-4.9) X10*3/uL [place] # (Auto) 0.5 (0.1-1.2) X10*3/uL Eos # (Auto) 0.2 (0.0-0.4) X10*3/uL Baso # (Auto) 0.0 (0.0-0.2) X10*3/uL Abs Immat Gran (auto) 0.02 (0.00-0.03) X10*3/uL Absolute Neuts (auto) 3.9 (2.0-8.3) x10*3/uL Absolute Nucleated RBC 0.000 (0.0-0.012) X10*3/uL Nucleated RBC % (auto) 0.0 (0.0-0.2) /100WBC ESR (0-20) MM/HR Sodium 139 (135-145) mmol/L Potassium 3.7 (3.3-5.1) mmol/L Chloride 106 (96-108) mmol/L Carbon Dioxide 25 (22-29) mmol/L Anion Gap 12 (12-20) BUN 8 L (9-16) mg/dL Creatinine 0.77 (0.5-1.4) mg/dL Estim Creat Clear Calc 125.1 Estimated GFR > 60 Random Glucose 89 (60-115) mg/dL Lactic Acid 0.6 (0.5-2.0) mmol/L Calcium 9.2 (8.4-10.2) mg/dL Magnesium 2.1 (1.6-2.6) mg/dL Total Bilirubin 0.4 (0.0-1.0) mg/dL Direct Bilirubin < 0.2 (0.0-0.5) mg/dL AST 17 (5-31) U/L ALT 12 (0-31) U/L Alkaline Phosphatase 50 (39-117) U/L C-Reactive Protein (< or = 0.50) mg/dL Total Protein 7.0 (6.5-8.0) g/dL Albumin 4.5 (3.5-5.0) g/dL Beta HCG, Quant < 2 mIU/mL 07/12/22 07/12/22 Range/Units 18:32 18:32 WBC (4.8-10.8) X10*3/uL RBC (4.20-5.50) X10*6/uL Hgb (12.0-16.0) g/dl Hct (37.0-47.0) % MCV (80.0-98.0) fL MCH (27.0-33.0) pg MCHC (31.0-35.0) g/dl RDW (11.0-16.0) % Plt Count (160-400) X10*3/uL MPV (9.4-12.3) fL Immature Gran % (Auto) (0.0-0.4) % Neut % (Auto) (45-73) % Lymph % (Auto) (20-40) % [place] % (Auto) (2-11) % Eos % (Auto) (0-4) % Baso % (Auto) (0-2) % Lymph # (Auto) (1.2-4.9) X10*3/uL [place] # (Auto) (0.1-1.2) X10*3/uL Eos # (Auto) (0.0-0.4) X10*3/uL Baso # (Auto) (0.0-0.2) X10*3/uL Abs Immat Gran (auto) (0.00-0.03) X10*3/uL Absolute Neuts (auto) (2.0-8.3) x10*3/uL Absolute Nucleated RBC (0.0-0.012) X10*3/uL Nucleated RBC % (auto) (0.0-0.2) /100WBC ESR 13 (0-20) MM/HR Sodium (135-145) mmol/L Potassium (3.3-5.1) mmol/L Chloride (96-108) mmol/L Carbon Dioxide (22-29) mmol/L Anion Gap (12-20) BUN (9-16) mg/dL Creatinine (0.5-1.4) mg/dL Estim Creat Clear Calc Estimated GFR Random Glucose (60-115) mg/dL Lactic Acid (0.5-2.0) mmol/L Calcium (8.4-10.2) mg/dL Magnesium (1.6-2.6) mg/dL Total Bilirubin (0.0-1.0) mg/dL Direct Bilirubin (0.0-0.5) mg/dL AST (5-31) U/L ALT (0-31) U/L Alkaline Phosphatase (39-117) U/L C-Reactive Protein 0.11 (< or = 0.50) mg/dL Total Protein (6.5-8.0) g/dL Albumin (3.5-5.0) g/dL Beta HCG, Quant mIU/mL <Tory Restrepo CNP - Last Filed: 07/12/22 19:01> Lab Results 02/13/23 02/13/23 02/13/23 Range/Units 18:32 18:32 18:32 WBC 7.8 (4.8-10.8) X10*3/uL RBC 4.32 (4.20-5.50) X10*6/uL Hgb 12.6 (12.0-16.0) g/dl Hct 38.2 (37.0-47.0) % MCV 88.4 (80.0-98.0) fL MCH 29.2 (27.0-33.0) pg MCHC 33.0 (31.0-35.0) g/dl RDW 13.5 (11.0-16.0) % Plt Count 274 (160-400) X10*3/uL MPV 9.9 (9.4-12.3) fL Immature Gran % (Auto) 0.3 (0.0-0.4) % Neut % (Auto) 50.3 (45-73) % Lymph % (Auto) 39.9 (20-40) % [place] % (Auto) 6.0 (2-11) % Eos % (Auto) 3.1 (0-4) % Baso % (Auto) 0.4 (0-2) % Lymph # (Auto) 3.1 (1.2-4.9) X10*3/uL [place] # (Auto) 0.5 (0.1-1.2) X10*3/uL Eos # (Auto) 0.2 (0.0-0.4) X10*3/uL Baso # (Auto) 0.0 (0.0-0.2) X10*3/uL Abs Immat Gran (auto) 0.02 (0.00-0.03) X10*3/uL Absolute Neuts (auto) 3.9 (2.0-8.3) x10*3/uL Absolute Nucleated RBC 0.000 (0.0-0.012) X10*3/uL Nucleated RBC % (auto) 0.0 (0.0-0.2) /100WBC ESR (0-20) MM/HR Sodium 139 (135-145) mmol/L Potassium 3.7 (3.3-5.1) mmol/L Chloride 106 (96-108) mmol/L Carbon Dioxide 25 (22-29) mmol/L Anion Gap 12 (12-20) BUN 8 L (9-16) mg/dL Creatinine 0.77 (0.5-1.4) mg/dL Estim Creat Clear Calc 125.1 Estimated GFR > 60 Random Glucose 89 (60-115) mg/dL Lactic Acid 0.6 (0.5-2.0) mmol/L Calcium 9.2 (8.4-10.2) mg/dL Magnesium 2.1 (1.6-2.6) mg/dL Total Bilirubin 0.4 (0.0-1.0) mg/dL Direct Bilirubin < 0.2 (0.0-0.5) mg/dL AST 17 (5-31) U/L ALT 12 (0-31) U/L Alkaline Phosphatase 50 (39-117) U/L C-Reactive Protein (< or = 0.50) mg/dL Total Protein 7.0 (6.5-8.0) g/dL Albumin 4.5 (3.5-5.0) g/dL Beta HCG, Quant < 2 mIU/mL 07/12/22 07/12/22 Range/Units 18:32 18:32 WBC (4.8-10.8) X10*3/uL RBC (4.20-5.50) X10*6/uL Hgb (12.0-16.0) g/dl Hct (37.0-47.0) % MCV (80.0-98.0) fL MCH (27.0-33.0) pg MCHC (31.0-35.0) g/dl RDW (11.0-16.0) % Plt Count (160-400) X10*3/uL MPV (9.4-12.3) fL Immature Gran % (Auto) (0.0-0.4) % Neut % (Auto) (45-73) % Lymph % (Auto) (20-40) % [place] % (Auto) (2-11) % Eos % (Auto) (0-4) % Baso % (Auto) (0-2) % Lymph # (Auto) (1.2-4.9) X10*3/uL [place] # (Auto) (0.1-1.2) X10*3/uL Eos # (Auto) (0.0-0.4) X10*3/uL Baso # (Auto) (0.0-0.2) X10*3/uL Abs Immat Gran (auto) (0.00-0.03) X10*3/uL Absolute Neuts (auto) (2.0-8.3) x10*3/uL Absolute Nucleated RBC (0.0-0.012) X10*3/uL Nucleated RBC % (auto) (0.0-0.2) /100WBC ESR 13 (0-20) MM/HR Sodium (135-145) mmol/L Potassium (3.3-5.1) mmol/L Chloride (96-108) mmol/L Carbon Dioxide (22-29) mmol/L Anion Gap (12-20) BUN (9-16) mg/dL Creatinine (0.5-1.4) mg/dL Estim Creat Clear Calc Estimated GFR Random Glucose (60-115) mg/dL Lactic Acid (0.5-2.0) mmol/L Calcium (8.4-10.2) mg/dL Magnesium (1.6-2.6) mg/dL Total Bilirubin (0.0-1.0) mg/dL Direct Bilirubin (0.0-0.5) mg/dL AST (5-31) U/L ALT (0-31) U/L Alkaline Phosphatase (39-117) U/L C-Reactive Protein 0.11 (< or = 0.50) mg/dL Total Protein (6.5-8.0) g/dL Albumin (3.5-5.0) g/dL Beta HCG, Quant mIU/mL <FANNY Reeder - Last Filed: 07/12/22 20:31> Independent Interpretation I performed an independent interpretation of an: CT Scan <Tory Restrepo CNP - Last Filed: 07/12/22 19:01> Radiology Impression Discussion of test interpretation with radiology: I have reviewed the radiologist's reading. <Tory Restrepo CNP - Last Filed: 07/12/22 19:01> Medications Administered Discontinued Medications Generic Name Dose Route Start Last Admin Trade Name Freq PRN Reason Stop Dose Admin Sodium Chloride 1,000 mls @ 999 mls/hr 07/12/22 18:45 07/12/22 18:46 Ns IV 07/12/22 19:45 999 mls/hr .Q1H1M BILL Administration Iohexol 100 ml 07/12/22 19:38 07/12/22 19:39 Iohexol 350 Mg/Ml 100 Ml Infus..Btl IV 07/12/22 19:39 85 ml ONCE ONE Administration Ketorolac Tromethamine 30 mg 07/12/22 18:39 07/12/22 18:46 Ketorolac Tromethamine 30 Mg/Ml Vial IVPUSH 07/12/22 18:40 30 mg ONCE ONE Administration <FANNY Guzman - Last Filed: 07/12/22 17:25> Medications Administered Discontinued Medications Generic Name Dose Route Start Last Admin Trade Name Freq PRN Reason Stop Dose Admin Sodium Chloride 1,000 mls @ 999 mls/hr 07/12/22 18:45 07/12/22 18:46 Ns IV 07/12/22 19:45 999 mls/hr .Q1H1M BILL Administration Iohexol 100 ml 07/12/22 19:38 07/12/22 19:39 Iohexol 350 Mg/Ml 100 Ml Infus..Btl IV 07/12/22 19:39 85 ml ONCE ONE Administration Ketorolac Tromethamine 30 mg 07/12/22 18:39 07/12/22 18:46 Ketorolac Tromethamine 30 Mg/Ml Vial IVPUSH 07/12/22 18:40 30 mg ONCE ONE Administration <Tory Restrepo CNP - Last Filed: 07/12/22 19:01> Medications Administered Discontinued Medications Generic Name Dose Route Start Last Admin Trade Name Freq PRN Reason Stop Dose Admin Sodium Chloride 1,000 mls @ 999 mls/hr 07/12/22 18:45 07/12/22 18:46 Ns IV 07/12/22 19:45 999 mls/hr .Q1H1M BILL Administration Iohexol 100 ml 07/12/22 19:38 07/12/22 19:39 Iohexol 350 Mg/Ml 100 Ml Infus..Btl IV 07/12/22 19:39 85 ml ONCE ONE Administration Ketorolac Tromethamine 30 mg 07/12/22 18:39 07/12/22 18:46 Ketorolac Tromethamine 30 Mg/Ml Vial IVPUSH 07/12/22 18:40 30 mg ONCE ONE Administration <FANNY Reeder Last Filed: 07/12/22 20:31> Critical Care Time Critical Care Time Critical Care Time: No <FANNY Reeder - Last Filed: 07/12/22 20:31> Discharge Plan Discharge Clinical Impression: Abdominal pain <FANNY Guzman Last Filed: 07/12/22 17:25> Patient Disposition: Home, Self-Care <FANNY Guzman Last Filed: 07/12/22 17:25> Instructions: Abdominal Pain (ED) <FANNY Guzman Last Filed: 07/12/22 17:25> Additional Instructions: Take your medications as prescribed. If you were prescribed antibiotics today, it is important that you take your medication to their entirety, do not skip any doses, do not finish them early. Follow-up with your primary care provider this week. Return to the emergency department with new or worsening symptoms. Such as fevers, chills, chest pain, shortness of breath, nausea, vomiting, dizziness, headache, vision changes, lethargy In case of emergency call 911 <FANNY Guzman Last Filed: 07/12/22 17:25> Prescriptions: No Action Unisom (doxylamine) 25 mg tablet 12.5 mg PO BEDTIME PRN (Reason: sleep) Qty: 30 0RF amoxicillin-pot clavulanate [Augmentin] 875-125 mg tablet 1 tab PO BID 7 Days Qty: 14 0RF Vitamin Plus Low Iron 27 mg iron- 1 mg tablet 1 tab PO DAILY medroxyprogesterone [Depo-Provera] 150 mg/mL suspension 150 mg IM [id number] Qty: 1 3RF famotidine [Pepcid] 20 mg tablet 20 mg PO BID Qty: 30 1RF <FANNY Guzman Last Filed: 07/12/22 17:25> Referrals: Physician,None [Primary Care Provider] - 2 days [facility] [Provider Group] - 2 days <FANNY Guzman Last Filed: 07/12/22 17:25> Stand Alone Forms: Work/School Release <FANNY Guzman - Last Filed: 07/12/22 17:25>
[2022-07-12 18:45] LABS: MANUAL DIFF FLAG NO
[2022-07-12 18:46] LABS: Basophils Percent Auto 0.4 % (0-2); Eosinophils Absolute Auto 0.2 X10*3/uL (0.0-0.4); Eosinophils Percent Auto 3.1 % (0-4); Hematocrit 38.2 % (37.0-47.0); Hemoglobin 12.6 g/dl (12.0-16.0); Imm Gran Abs Auto 0.02 X10*3/uL (0.00-0.03); Imm Gran Pct Auto 0.3 % (0.0-0.4); Lymphocytes Absolute Auto 3.1 X10*3/uL (1.2-4.9); Lymphocytes Percent Auto 39.9 % (20-40); Mean Corpuscular Hemoglobin 29.2 pg (27.0-33.0); Mean Corpuscular Volume 88.4 fL (80.0-98.0); Mean Platelet Volume 9.9 fL (9.4-12.3); Monocytes Absolute Auto 0.5 X10*3/uL (0.1-1.2); Neutrophils Absolute Auto 3.9 x10*3/uL (2.0-8.3); Neutrophils Percent Auto 50.3 % (45-73); Platelet Count 274 X10*3/uL (160-400); Red Blood Count 4.32 X10*6/uL (4.20-5.50); Red Cell Distribution Width 13.5 % (11.0-16.0); White Blood Count 7.8 X10*3/uL (4.8-10.8)
[2022-07-12] MEDS: 0.9 % Sodium Chloride 1,000 ML 999 ML IV (18:46)
[2022-07-12] MEDS: Ketorolac Tromethamine 30 MG/ML VIAL IVPUSH (18:46)
[2022-07-12 18:59] LABS: Lactic Acid 0.6 mmol/L (0.5-2.0)
[2022-07-12 19:00] LABS: C Reactive Protein 0.11 mg/dL (< or = 0.50)
[2022-07-12 19:09] LABS: Alanine Aminotransferase 12 U/L (0-31); Albumin Level 4.5 g/dL (3.5-5.0); Alkaline Phosphatase 50 U/L (39-117); Anion Gap 12 (12-20); Aspartate Amino Transferase 17 U/L (5-31); Bilirubin Direct < 0.2 mg/dL (0.0-0.5); Bilirubin Total 0.4 mg/dL (0.0-1.0); Blood Urea Nitrogen 8 mg/dL (9-16); Calcium 9.2 mg/dL (8.4-10.2); Carbon Dioxide 25 mmol/L (22-29); Chloride 106 mmol/L (96-108); Creatinine Clr Calc Pharmacy 125.1; Estimated Glomerular Filt Rate > 60; Glucose Random 89 mg/dL (60-115); Magnesium 2.1 mg/dL (1.6-2.6); Potassium 3.7 mmol/L (3.3-5.1); Sodium 139 mmol/L (135-145)
[2022-07-12 19:13] LABS: HCG Quantitative < 2 mIU/mL
[2022-07-12 19:30] LABS: Erythrocyte Sedimentation Rate 13 MM/HR (0-20)
[2022-07-12] MEDS: iohexoL 350 MG/ML 100 ML INFUS..BTL IV (19:39)
== END 2022-07-12 20:37 | disposition home or self-care (01) ==
PROVIDERS: Nurse Practitioner Family; Physician Assistant; Emergency Provider Emergency Medicine
DX: R10.33 Periumbilical pain (principal)
CPT/HCPCS: 36415; 74177; 80048; 80076; 83605; 83735; 84702; 85025; 85652; 86140; 96374; 99284; J1885; Q9967

== ENCOUNTER → 2022-10-27 08:52 | Outpatient (BNVA) | payer MEDICAID, SELFPAY | PROVIDERS: Visit Provider Advanced Practice Midwife | DX: Z30.09 Encounter for other general counseling and advice on contraception (principal) | CPT/HCPCS: 99212 ==

== ENCOUNTER → 2022-11-02 10:59 | Outpatient (BNVA) | payer MEDICAID, SELFPAY | PROVIDERS: Visit Provider Advanced Practice Midwife | DX: Z30.430 Encounter for insertion of intrauterine contraceptive device (principal) | CPT/HCPCS: 58300; 81025; J7298 ==

== ENCOUNTER 2022-12-23 15:24 | Outpatient (AMB) | payer MEDICAID, SELFPAY ==
--- NOTE | 2022-12-23 15:27 | MHC.OFFVIS ---
Intake Vital Signs 12/23/22 15:33 Height 5 ft 3 in Weight 186 lb BMI 32.9 BP 94/54 L Intake Visit Reasons: IUD Check Intake Note: pt c/o bleeding since insertion Junk Removal Specialist: Junk Removal Specialist Present (Janeth) Allergies No Known Allergies [No Known Allergies*] Allergy (Verified 12/23/22 15:27) HPI HPI Comments History of Present Illness Details She is here for a IUD check. Reports vaginal discharge and blood clots since IUD insertion 11/02/2022. She would like to consider a tubal ligation at this time. Menses flow are the same since the IUD insertion. Uses tampons and changes 3-4 times a day. Taking OTC AZO for PH maintenance for UTI symptoms. [facility] Medical History Breakthrough bleeding associated with intrauterine device (IUD) IUD surveillance Family History Mother Hx of thyroid disease Hx of chronic inflammatory arthritis Father No problems noted. Maternal Grandmother History of high blood pressure Maternal Grandfather No problems noted. Paternal Grandmother No problems noted. Paternal Grandfather Hx of schizophrenia Social History Household Members: Spouse and Children Alcohol intake: never Patient Tobacco Use Status: Never used Tobacco Sexual orientation: Straight/Heterosexual Gender identity: Female Female Reproductive History Menstrual Age of Menarche: 10 control method: progestin IUCD (Mirena 11/02/22; IUD strings Visible 12/23/22) Physical Exam Vital Signs: Last Vital Signs BP 94/54 L 12/23/22 15:33 BMI result Body Mass Index 32.9 Const General: cooperative, healthy appearing, comfortable, no acute distress, well developed, alert and awake Other: General: Yes bladder normal to palpation External Female Exam: normal external appearance and normal appearance of the urethra Speculum Exam - Vagina: normal appearance of the vagina, normal palpation and normal vaginal discharge Speculum Exam - Cervix: normal appearance of the cervix, normal palpation and Other cervical findings present (IUD strings Visible) Bimanual exam- vagina & uterus: normal bimanual exam, normal palpation, bladder normal to palpation and normal palpation Bimanual Exam- Adnexa, other: normal adnexae and no masses Assessment & Plan Assessment & Plan (1) IUD surveillance: Code(s): Z30.431 - Encounter for routine checking of intrauterine contraceptive device Plan: Discussed: Bleeding tends to taper down, some women do not bleed at all for months, some have unscheduled and random bleeding. Monitor bleeding and cramps for the next 1-2 months and contact office with any concerns or questions. Consult with Dr. Mota for tubal ligation. All of her questions and concerns were addressed to the best of my ability and shared decision making. She is agreeable to plan of care. (2) Breakthrough bleeding associated with intrauterine device (IUD): Code(s): N92.1 - Excessive and frequent menstruation with irregular cycle; Z97.5 - Presence of (intrauterine) contraceptive device Coding Level of Care Code Est Pt Level 3 (97135) Diagnoses IUD surveillance Z30.431 Breakthrough bleeding associated with intrauterine device (IUD) N92.1; Z97.5
[2022-12-23 15:33] VITALS: BP 94/54; BMI 32.9
== END 2022-12-23 15:57 | disposition home or self-care (01) ==
LOC: HO.HWS 15:24
PROVIDERS: Visit Provider Advanced Practice Midwife
DX: Z30.431 Encounter for routine checking of intrauterine contraceptive device (principal); N92.1 Excessive and frequent menstruation with irregular cycle
CPT/HCPCS: 99213

== ENCOUNTER → 2022-12-23 15:24 | Outpatient (BNVA) | payer MEDICAID, SELFPAY | PROVIDERS: Visit Provider Advanced Practice Midwife | DX: Z30.431 Encounter for routine checking of intrauterine contraceptive device (principal); N92.1 Excessive and frequent menstruation with irregular cycle | CPT/HCPCS: 99213 ==

== ENCOUNTER 2023-01-12 10:36 | Outpatient (AMB) | payer MEDICAID, SELFPAY ==
[2023-01-12 10:36] VITALS: BP 110/62; BMI 33.1
--- NOTE | 2023-01-12 10:36 | MHC.OFFVIS ---
Intake Vital Signs 01/12/23 10:36 Height 5 ft 3 in Weight 187 lb BMI 33.1 BP 110/62 Intake Visit Reasons: BC Removal Consult Intake Note: The patient agreed to use of a pediatric medical assistant during this encounter. Scribed for [facility] by Nicole Marsh pediatric medical assistant, on 01/12/2023 at 10:50 am EST. Sugar Mill Worker Required: No Information Interpreted: non-clinical & clinical Allergies No Known Allergies [No Known Allergies*] Allergy (Verified 01/12/23 10:38) Is last menstrual period known: Yes Post menopausal: No Patient : No HPI HPI Comments History of Present Illness Details She is here for IUD removal consults because she is still experiencing breakthough bleeding, daily headaches, low back pain and over all muscle aches. She wants to use condoms when IUD is removed. She has used condoms for two years prior and has had success in . She was offered the IUD removal today, and accepts. See procedure note. [facility] Medical History Breakthrough bleeding associated with intrauterine device (IUD) Head ache Muscular aches Family History Mother Hx of thyroid disease Hx of chronic inflammatory arthritis Father No problems noted. Maternal Grandmother History of high blood pressure Maternal Grandfather No problems noted. Paternal Grandmother No problems noted. Paternal Grandfather Hx of schizophrenia Social History Household Members: Spouse and Children Alcohol intake: never Patient Tobacco Use Status: Never used Tobacco Patient : No Sexual orientation: Straight/Heterosexual Gender identity: Female Female Reproductive History Menstrual Age of Menarche: 10 Duration of menses: other Total pregnancies: 0 Number of Living Children: 0 History of abnormal pap smear: No Physical Exam Vital Signs: Last Vital Signs BP 110/62 01/12/23 10:36 BMI result Body Mass Index 33.1 Const General: cooperative, healthy appearing, comfortable, no acute distress, well developed, alert and awake Other: General: Yes bladder normal to palpation External Female Exam: normal external appearance and normal appearance of the urethra Speculum Exam - Vagina: normal appearance of the vagina, normal palpation, normal vaginal discharge and other (small amount of blood) Speculum Exam - Cervix: normal appearance of the cervix, normal palpation and Other cervical findings present (IUD strings visible) Bimanual exam- vagina & uterus: normal bimanual exam, normal palpation, bladder normal to palpation and normal palpation Bimanual Exam- Adnexa, other: normal adnexae and no masses Office Procedures IUD Insert/Removal Details Details: HPI She presents for IUD removal. She is counseled and consented for procedure. She is aware of risks for bleeding, pain, infection, and injury to bowel or bladder. Procedure The patient was placed in the dorsal lithotomy position. A speculum was inserted vaginally, and the cervix and strings were visualized at the os. A ring forcep was utilized, and the patient was asked to give a deep cough while the strings were grasped and gently tugged at the same time, removing the IUD device intact. Minimal bleeding was observed. All of the equipment was removed. The patient tolerated the procedure well and left the office in good condition. IUD successfully removed today. See procedure note. Plan Scheduled tubal ligation consult with Dr. Mota. Monitor periods. Use condoms consistently. Warnings reviewed with patient. Instructions given to call if temp >100.4, flu like sx, SOB, fatigue, lightheadedness/dizziness, abd pain, bloating or abd distention, bowel changes including rectal bleeding, bladder changes, foul odor or heavy vaginal bleeding. Call office with any questions or concerns. [id number] Removal Procedure code (CPT) selection complete Assessment & Plan Assessment & Plan (1) Encounter for IUD removal: Code(s): Z30.432 - Encounter for removal of intrauterine contraceptive device Plan: See procedure note. (2) Breakthrough bleeding associated with intrauterine device (IUD): Code(s): N92.1 - Excessive and frequent menstruation with irregular cycle; Z97.5 - Presence of (intrauterine) contraceptive device (3) Head ache: Code(s): R51.9 - Headache, unspecified (4) Muscular aches: Code(s): M79.10 - Myalgia, unspecified site (5) Low back pain: Code(s): M54.50 - Low back pain, unspecified Coding Level of Care Code Procedure Only Diagnoses Encounter for IUD removal Z30.432 Breakthrough bleeding associated with intrauterine device (IUD) N92.1; Z97.5 Head ache R51.9 Muscular aches M79.10 Low back pain M54.50 CPT Codes Details - CPT: 74646-QTG Removal ([id number])
== END 2023-01-12 11:04 | disposition home or self-care (01) ==
LOC: HO.HWS 10:36
PROVIDERS: Visit Provider Advanced Practice Midwife
DX: Z30.432 Encounter for removal of intrauterine contraceptive device (principal); N92.1 Excessive and frequent menstruation with irregular cycle; R51.9 Headache, unspecified
CPT/HCPCS: 58301

== ENCOUNTER → 2023-01-12 10:36 | Outpatient (BNVA) | payer MEDICAID, SELFPAY | PROVIDERS: Visit Provider Advanced Practice Midwife | DX: Z30.432 Encounter for removal of intrauterine contraceptive device (principal); N92.1 Excessive and frequent menstruation with irregular cycle; R51.9 Headache, unspecified; M54.50 Low back pain, unspecified; M79.10 Myalgia, unspecified site | CPT/HCPCS: 58301 ==

== ENCOUNTER 2023-02-22 08:07 | Outpatient (AMB) | payer MEDICAID, SELFPAY ==
[2023-02-22 08:09] VITALS: BP 116/68; BMI 32.8
--- NOTE | 2023-02-22 08:09 | MHC.OFFVIS ---
Intake Vital Signs 02/22/23 08:09 Height 5 ft 3 in Weight 185 lb 3.013 oz BMI 32.8 BP 116/68 Intake Visit Reasons: Tubal Consult Pl[employer] Required: No Information Interpreted: non-clinical & clinical Accompanied by: Self / Same As Patient Allergies No Known Allergies [No Known Allergies*] Allergy (Verified 02/22/23 08:13) Is last menstrual period known: Yes Last menstrual period: 01/31/23 HPI HPI Comments History of Present Illness Details Presenting discussed sent options of control. Last Pap smear was in 02/16 was negative, the patient scheduled for annual exam in 2 days [facility] Medical History Low back pain Muscular aches Head ache Breakthrough bleeding associated with intrauterine device (IUD) Family History Mother Hx of thyroid disease Hx of chronic inflammatory arthritis Father No problems noted. Maternal Grandmother History of high blood pressure Maternal Grandfather No problems noted. Paternal Grandmother No problems noted. Paternal Grandfather Hx of schizophrenia Social History Household Members: Spouse and Children Alcohol intake: never Patient Tobacco Use Status: Never used Tobacco Sexual orientation: Straight/Heterosexual Gender identity: Female Female Reproductive History Menstrual Age of Menarche: 10 Date of last menstrual period: 01/31/23 control method: none Review of Systems Const All systems reviewed & are unremarkable except as noted in HPI and below Reports as per HPI and Reports no additional complaints GI Reports no additional complaints Reports no additional complaints Physical Exam Vital Signs: Last Vital Signs BP 116/68 02/22/23 08:09 BMI result Body Mass Index 32.8 Assessment & Plan Assessment & Plan (1) Family planning: Code(s): Z30.09 - Encounter for other general counseling and advice on contraception Plan: D/w the patient the different options of Control including but not limited to control pills, Nuvaring, DMPA and Nexplanon, Paraguard and Progesterone IUD, Sterilization, & vasectomy. A more detailed discussion about the pros and cons of each were discussed with the patient. The patient elected to go with tubal sterilization. Different techniques were discussed with the patient including laparoscopic bilateral fallope ring application, bipolar cauterization of Fallopian tubes & bilateral salpingectomy with benefits of reducing ovarian cancer (mentioned to the patient that currently this is the recommended procedure for sterilization). D/w the patient the likelihood of success, the failure rate and risk of ectopic , irreversibility of the procedure , regret rate and complications during procedure including but not limited to: infection, bleeding, possible need for blood transfusion, risk exposure HIV Hep B and C, anesthesia complications, injury to bladder, bowel, ureter blood vessels, vagina by way of perforation requiring a second operation to repair fistula, major surgery requiring colostomy possible removal of the uterus, ovaries and tubes necessating laparotomy. The patient verbalized understanding and stated that she had completed her family and would like to proceed with permanent sterilization so will schedule laparoscopic bilateral sterilization using bilateral cauterization possible bilateral salpingectomies. [facility] & since the patient is due for a Pap smear, the patient is scheduled for an annual well-woman exam in 2 days, will check Pap smear results to make sure it is normal, therefore the patient does need any additional procedure scheduled. All questions answered. The patient verbalized understanding Coding Level of Care Code Est Pt Level 3 (75489) Diagnoses Family planning Z30.09
== END 2023-02-22 08:49 | disposition home or self-care (01) ==
PROVIDERS: Visit Provider Obstetrics & Gynecology
DX: Z30.09 Encounter for other general counseling and advice on contraception (principal)
CPT/HCPCS: 99213

== ENCOUNTER → 2023-02-22 08:07 | Outpatient (BNVA) | payer MEDICAID, SELFPAY | PROVIDERS: Visit Provider Obstetrics & Gynecology | DX: T83.83XA Hemorrhage due to genitourinary prosthetic devices, implants and grafts, initial encounter (principal); Z30.09 Encounter for other general counseling and advice on contraception | CPT/HCPCS: 99212 ==

== ENCOUNTER 2023-02-24 14:23 | Outpatient (REF) | payer MEDICAID, SELFPAY ==
[2023-02-24 17:18] LABS: CT PCR NOT DETECTED (Not Detect.); NG PCR NOT DETECTED (Not Detect.)
[2023-02-25 03:15] LABS: Syphilis Screen Nonreactive (Nonreactive)
[2023-02-25 03:42] LABS: HIV AB/AG Nonreactive (Nonreactive); HIV Num 1 0.06 S/CO (0.00-0.99); Hepatitis B Core Antibody Nonreactive (Nonreactive); ~HepC Num1 0.08 S/CO (0.00-0.79); ~Hepatitis C Antibody Nonreactive (Nonreactive)
[2023-03-01 20:04] LABS: HPV mRNA E6/E7 rflx Not Detected (Not Detected)
== END 2023-02-24 14:24 | disposition home or self-care (01) ==
LOC: HO.LNP 14:23
PROVIDERS: Visit Provider Advanced Practice Midwife
DX: Z01.419 Encounter for gynecological examination (general) (routine) without abnormal findings (principal); Z11.51 Encounter for screening for human papillomavirus (HPV); Z11.4 Encounter for screening for human immunodeficiency virus [HIV]; Z20.2 Contact with and (suspected) exposure to infections with a predominantly sexual mode of transmission
CPT/HCPCS: 0353U; 86704; 86780; 86803; 87389; 87624; 88142; 99395

== ENCOUNTER 2023-02-24 14:23 | Outpatient (AMB) | payer MEDICAID, SELFPAY ==
--- NOTE | 2023-02-24 14:34 | A.OFFVIS_ITS ---
Intake Vital Signs 02/24/23 14:35 Height 5 ft 3 in Weight 185 lb BMI 32.8 BP 100/58 L Intake Visit Reasons: SANITARY PLUMBER annual exam Intake Note: The patient agreed to use of a medical grade shoemaker during this encounter. Scribed for [facility] [place] by Nicole Marsh medical grade shoemaker, on 02/24/2023 at 2:44 pm EST. Drying Oven Attendant: Drying Oven Attendant Present (Sherrie) Allergies No Known Allergies [No Known Allergies*] Allergy (Verified 02/24/23 14:34) Is last menstrual period known: Yes Last menstrual period: 02/05/23 HPI HPI Comments History of Present Illness Details She is a premenopausal woman presenting for annual exam. Doing well with no obstetrics gynecology physician concerns. She admits to eating healthy and tries to stay active with exercise. Currently sexually active. Uses condoms for BC. Is feeling well since IUD removal and her body aches are resolved. Regular monthly periods. Denies vaginal itching and irritation. STD screening and blood work offered; she accepts. Denies family hx of breast, colon and ovarian cancer. Last pap smear 03/26/20. PFSH Family History Mother Hx of thyroid disease Hx of chronic inflammatory arthritis Father No problems noted. Maternal Grandmother History of high blood pressure Diabetes Maternal Grandfather No problems noted. Paternal Grandmother No problems noted. Paternal Grandfather Hx of schizophrenia Social History Household Members: Spouse and Children Alcohol intake: never Patient Tobacco Use Status: Never used Tobacco Sexual orientation: Straight/Heterosexual Gender identity: Female Female Reproductive History Menstrual Age of Menarche: 10 Date of last menstrual period: 02/05/23 control method: condoms Total pregnancies: 2 Full term: 2 Number of Living Children: 2 Date of last pap smear: 03/26/20 (neg) Physical Exam Vital Signs: Last Vital Signs BP 100/58 L 02/24/23 14:35 BMI result Body Mass Index 32.8 Const General: cooperative, healthy appearing, no acute distress, well developed and alert Orientation/consciousness: patient oriented x3 HEENT Head: Yes normal to inspection Eyes General: appearance normal, both eyes and all related structures Neck Neck: Yes normal visual inspection Thyroid: Thyroid normal Chest Chest palpation & inspection: normal inspection of the chest Breast/axilla inspection: normal inspection of the breasts (no puckering, dimpling, peau de orange, retraction, discharge, masses) Breast/axilla palpation: normal palpation of the breasts Resp Effort & Inspection: normal respiratory effort GI Inspection: Yes normal to inspection Palpation (GI): Soft to palpation (to palpation) Rectal Exam - Female: deferred General: Yes bladder normal to inspection External Female Exam: normal external appearance and normal appearance of the urethra Speculum Exam - Vagina: normal appearance of the vagina, normal palpation and normal vaginal discharge Speculum Exam - Cervix: normal appearance of the cervix, normal palpation and Other cervical findings present (bled slightly with pap) Bimanual exam- vagina & uterus: normal palpation and normal palpation Bimanual Exam- Adnexa, other: normal adnexae and no masses Skin General skin exam: no rashes or lesions noted Neuro General: patient oriented x3 Cognition (Neuro): normal cognition Extrem General: Yes normal to inspection Psych Attitude: cooperative Thought process: Normal thought process present Assessment & Plan Assessment & Plan (1) Encounter for well woman exam: Code(s): Z01.419 - Encounter for gynecological examination (general) (routine) without abnormal findings Plan: Discussed: Current recommendations for pap smears per ASCCP guidelines. Breast awareness and periodic self breast exams. Maintaining a healthy lifestyle including a well balanced diet and routine exercise. Monitor periods, report any unscheduled bleeding, bleeding episodes less than 21 days apart or heavy prolonged menstrual bleeding. Keep tubal pre-op appt. Strongly advised condoms for prevention prior to tubal completion. All of her questions and concerns were addressed to the best of my ability. RTO in one year for AG. (2) Potential exposure to STD: Code(s): Z20.2 - Contact with and (suspected) exposure to infections with a predominantly sexual mode of transmission Plan: BV testing and GC/CT panel today. STD blood work ordered. Await results and treat accordingly Orders: Orders CT NG by PCR Today Z20.2 - Contact with and (suspected) exposure to infections with a predominantly sexual mode of transmission Hepatitis B Core Antibody Today Z20.2 - Contact with and (suspected) exposure to infections with a predominantly sexual mode of transmission Pap Smear Today Z01.419 - Encounter for gynecological examination (general) (routine) without abnormal findings Hepatitis C Antibody Today Z20.2 - Contact with and (suspected) exposure to infections with a predominantly sexual mode of transmission Syphilis Screen Today Z20.2 - Contact with and (suspected) exposure to infections with a predominantly sexual mode of transmission HIV Ab/Ag Today Z20.2 - Contact with and (suspected) exposure to infections with a predominantly sexual mode of transmission Coding Level of Care Code Est Pt Prev Care 18-39y(42133) Diagnoses Encounter for well woman exam Z01.419 Potential exposure to STD Z20.2
[2023-02-24 14:35] VITALS: BP 100/58; BMI 32.8
== END 2023-02-24 15:41 | disposition home or self-care (01) ==
PROVIDERS: Visit Provider Advanced Practice Midwife
DX: Z01.419 Encounter for gynecological examination (general) (routine) without abnormal findings (principal); Z20.2 Contact with and (suspected) exposure to infections with a predominantly sexual mode of transmission
CPT/HCPCS: 99395

== ENCOUNTER 2023-04-12 15:38 | Outpatient (AMB) | payer MEDICAID, SELFPAY ==
[2023-04-12 16:07] VITALS: BP 116/74; BMI 32.4
--- NOTE | 2023-04-12 16:07 | MHC.OFFVIS ---
Intake Vital Signs 04/12/23 16:07 Height 5 ft 3 in Weight 182 lb 15.739 oz BMI 32.4 BP 116/74 Intake Visit Reasons: pre op Allergies No Known Allergies [No Known Allergies*] Allergy (Verified 02/24/23 14:34) HPI HPI Comments History of Present Illness Details The patient is presenting for preoperative visit for Laparoscopic bilateral cauterization of fallopian tubes possible salpingectomies for sterilization. The patient is requesting permanent sterilization because she completed her family. PFSH Family History Mother Hx of thyroid disease Hx of chronic inflammatory arthritis Father No problems noted. Maternal Grandmother History of high blood pressure Diabetes Maternal Grandfather No problems noted. Paternal Grandmother No problems noted. Paternal Grandfather Hx of schizophrenia Social History Household Members: Spouse and Children Alcohol intake: never Patient Tobacco Use Status: Never used Tobacco Sexual orientation: Straight/Heterosexual Gender identity: Female Female Reproductive History Menstrual Age of Menarche: 10 Review of Systems Const All systems reviewed & are unremarkable except as noted in HPI and below Card Reports as per HPI, Reports no additional complaints, Denies chest pain, Denies chest pain with activity, Denies dyspnea and Denies dyspnea on exertion Resp Reports as per HPI, Reports no additional complaints, Denies cough, Denies pain on inspiration, Denies pain with cough, Denies dyspnea, Denies dyspnea on exertion and Denies wheezing GI Reports as per HPI, Reports no additional complaints, Denies abdominal pain, Denies change in bowel habits, Denies change in stool character, Denies early satiety, Denies dyspepsia, Denies heartburn, Denies nausea and Denies vomiting Reports as per HPI, Denies hematuria and Denies dysuria Aller/Immun Denies wheezing Physical Exam Vital Signs: Last Vital Signs BP 116/74 04/12/23 16:07 BMI result Body Mass Index 32.4 Const General: cooperative, healthy appearing and comfortable Chest Chest palpation & inspection: normal inspection of the chest and normal palpation of entire chest wall Resp Effort & Inspection: normal respiratory effort Auscultation: clear to auscultation bilaterally Percussion: percussion normal Cardio Palpation: normal PMI Rate: regular rate Rhythm: regular rhythm Heart sounds: no murmurs and no rubs Peripheral pulses: Peripheral pulses 2+ throughout GI Inspection: Yes normal to inspection Palpation (GI): Soft to palpation, nontender, no guarding, not rigid and No hepatosplenomegaly present Percussion: Yes normal to percussion Auscultation: normal bowel sounds Rectal Exam - Female: deferred Assessment & Plan Assessment & Plan (1) Sterilization: Code(s): Z30.2 - Encounter for sterilization Plan: Discussed with the patient the different options of control including but not limited to, control pills, Nuvaring, DMPA and Nexplanon, Copper and Progesterone IUD, Sterilization, & vasectomy. A more detailed discussion about the pros and cons of each were discussed with the pt. The patient elected to go with tubal sterilization. Different techniques were discussed with the patient including laparoscopic bilateral fallope ring application, bipolar cauterization of Fallopian tubes & bilateral salpingectomy with benefits of reducing ovarian cancer (mentioned to the patient that currently this is the recommended procedure for sterilization). Discussed with the patient the likelihood of success, the failure rate and risk of ectopic , irreversibility of the procedure , regret rate and complications during procedure including but not limited to: inability to perform the procedure for a variety of technical reasons, infection, bleeding, possible need for blood transfusion, risk exposure HIV Hepatitis B and C, anesthesia complications, injury to bladder, bowel, ureter blood vessels, vagina by way of perforation requiring a second operation to repair fistula, major surgery requiring colostomy possible removal of the uterus, ovaries and tubes necessitating laparotomy. The patient verbalized understanding and stated that she had completed her family and is would like to proceed with permanent sterilization. Laparoscopic bilateral sterilization using bilateral cauterization possible bilateral salpingectomies scheduled. All questions answered. The patient verbalized understanding and signed the consent. Coding Level of Care Code Est Pt Level 3 (20682) Diagnoses Sterilization Z30.2
== END 2023-04-12 16:11 | disposition home or self-care (01) ==
LOC: HO.HWS 15:38
PROVIDERS: Visit Provider Obstetrics & Gynecology
DX: Z30.2 Encounter for sterilization (principal)
CPT/HCPCS: 99213

== ENCOUNTER → 2023-04-12 15:38 | Outpatient (BNVA) | payer MEDICAID, SELFPAY | PROVIDERS: Visit Provider Obstetrics & Gynecology | DX: Z01.818 Encounter for other preprocedural examination (principal) | CPT/HCPCS: 99212 ==

== ENCOUNTER 2023-04-15 08:38 | Day surgery (SDC) | payer MEDICAID, SELFPAY ==
[2023-04-13 09:34] VITALS: BMI 32.4
--- NOTE | 2023-04-14 09:14 | HO.ANESPROP2 ---
Documented by User: Inés Hendrix NP 04/14/23 09:15 HPI - Anesthesia Eval Consult details Narrative: 27yo F for Tubal Ligation Laparoscopic,with poss Salpingectomy PMFSH Active Problems Active Problems: All Active Problems (Updated 04/12/23 @ 16:19 by Torito Mota MD) Sterilization (Acute) Family History Family History Mother Hx of thyroid disease Hx of chronic inflammatory arthritis Father No problems noted. Maternal Grandmother History of high blood pressure Diabetes Maternal Grandfather No problems noted. Paternal Grandmother No problems noted. Paternal Grandfather Hx of schizophrenia Surgical History Surgical History No pertinent past surgical history Social History Social History Household Members: Spouse and Children Alcohol intake: never Patient Tobacco Use Status: Never used Tobacco Use of substances other than those prescribed or required for medical reasons: No Are you DNR?: No Advance Directives: No Advance Directives Information Provided: Yes Sexual orientation: Straight/Heterosexual Gender identity: Female Meds Allergies Allergy/AdvReac Type Severity Reaction Status Date / Time No Known Allergies Allergy Verified 04/15/23 08:58 [No Known Allergies*] Home Medications Medication Instructions Recorded Confirmed Last Taken Type No Known Home Meds 02/24/23 04/15/23 Unknown History Exam Height,Weight and Vital Signs: Height 5 ft 3 in Weight 83.007 kg Assessment and Plan Assessment Anesthesia Assessment: Chart Reviewed Documented by User: Laura Bowens MD 04/15/23 09:34 PMFSH Active Problems Active Problems: All Active Problems (Updated 04/15/23 @ 09:14 by Laura Bowens MD) Sterilization (Acute) Increased BMI Family History Family History Mother Hx of thyroid disease Hx of chronic inflammatory arthritis Father No problems noted. Maternal Grandmother History of high blood pressure Diabetes Maternal Grandfather No problems noted. Paternal Grandmother No problems noted. Paternal Grandfather Hx of schizophrenia Family history of problems with anesthesia: No Surgical History Surgical History No pertinent past surgical history History of Problems with Anesthesia: No Social History Social History Household Members: Spouse and Children Alcohol intake: never Patient Tobacco Use Status: Never used Tobacco Use of substances other than those prescribed or required for medical reasons: No Are you DNR?: No Advance Directives: No Advance Directives Information Provided: Yes Sexual orientation: Straight/Heterosexual Gender identity: Female Meds Allergies Allergy/AdvReac Type Severity Reaction Status Date / Time No Known Allergies Allergy Verified 04/15/23 08:58 [No Known Allergies*] Home Medications Medication Instructions Recorded Confirmed Last Taken Type No Known Home Meds 02/24/23 04/15/23 Unknown History Exam Height,Weight and Vital Signs: Height 5 ft 3 in Weight 83.007 kg Vital Signs Temp Pulse Resp BP Pulse Ox O2 Del Method 04/15/23 08:47 98.0 F 61 16 102/55 L 98 Room Air Pertinent Lab Results Pertinent Lab Results: Lab Results 04/15/23 Range/Units 08:45 Urine Test NEGATIVE (NEGATIVE) Airway Mallampati Class: II TM Dist: >3cm Neck ROM: Full Loose/Missing/Broken Teeth: Yes (Molars extracted as a child. Denies broken or loose teeth) Heart: RRR Lungs: CTAB Assessment and Plan Assessment Anesthesia Assessment: Anesthesia Plan Discussed Final Anesthetic Review Family History of Problems with Anesthesia: No History of Problems with Anesthesia: No NPO: Yes ASA Class: II Final Preanesthetic Review: No Changes in Pt Med Stat, Meds/Allgs Chart Reviewed, Consent Obtained/Reviewed and Anes Risks/Benef Reviewed Patient Risk: Intermediate Procedure Risk: Low Assessment/Block/Sedation in SS: Assess/Block/Sedation-SS Anesthetic Plan Anesthetic Plan: GA Disposition: Standard PACU
[2023-04-15] VITALS (7 sets, daily range): BP systolic 102–121; BP diastolic 55–73; PULSE 51–71; RESP 12–16; TEMP 36.1–36.7; O2SAT 97–100; BMI 32.2
[2023-04-15 08:59] LABS: UPreg QC Valid YES; Urine Pregnancy NEGATIVE (NEGATIVE)
[2023-04-15] MEDS: Lactated Ringers 1,000 ML 100 ML IVCONT (09:13)
--- NOTE | 2023-04-15 10:26 | MHC.SHP ---
Pre-Procedural Eval Section A Date of Service: 04/15/23 The patient is an INPATIENT: No Changes since office visit: No Cold of Flu in the past 2 weeks, No New Medical Problems, No Changes in Medication and No Patient answered all questions The History & Physical has been completed within 30 days and I have reviewed it.: Yes Section B Chief Complaint: Encounter for other general counseling and advice Allergies: Allergies Allergy/AdvReac Type Severity Reaction Status Date / Time No Known Allergies Allergy Verified 04/15/23 08:58 [No Known Allergies*] Plan Diagnosis/Plan: Unchanged I have reviewed the history and physical and performed a pertinent physical examination on my patient. No changes have occurred unless specified. Time Spent With Patient Time: Total time managing care of this patient today ____ minutes.
--- NOTE | 2023-04-15 11:38 | PM.OP ---
Brief Operative Note Date of Service: 04/15/23 Pre-op diagnosis: Completed family requesting permanent sterilization Post-op diagnosis: same Procedure: Laparoscopic bliateral salpingectomy Surgeon: Torito Mota MD Anesthesia: GETA Was an Professor Of Special Education used for this Procedure?: No Estimated blood loss (mL): 0 Pathology: other (Right & left fallopian tubes) Condition: stable Disposition: PACU
--- NOTE | 2023-04-15 11:39 | P.OP_ITS ---
Operative Note Operative Note Date of Service: 04/15/23 Narrative: PREOPERATIVE DIAGNOSIS:?Completed family requesting?permanent sterilization POSTOPERATIVE DIAGNOSIS:?Completed family requesting?permanent sterilization QBL: Minimal Anesthesia: GETA SURGEON:? Torito Mota MD?? Diesel Engine Assembler: Complications: None Pathology: Right and left Fallopian tubes? DESCRIPTION OF PROCEDURE:?The patient was taken to the OR where general anesthesia was easily obtained. The patient was then prepped and draped in a sterile fashion and placed in dorsal lithotomy position. A speculum was introduced into the patient?s vagina for cervical visualization. Once the cervix was visualized, a single-toothed tenaculum was applied to the upper lip of the cervix, and a Humi manipulator was introduced into the patient?s cervix. The single tooth tenaculum was then removed and hemostasis was assured?using pressur e. a Sanford catheter?was inserted and clear urine started draining. Gloves were changed to clean ones. Attention was then drawn to the abdomen where a 10 mm longitudinal incision was done intra umbilical and carried down all the way to the fascia, which was tented?up using 2 Patricia clamps and was nicked in the midline and then extended on both end of the incision?, them using 2 pick?ups the peritoneum?was entered with Metzenbaum scissors and under direct visualization, a 10 mm Carrillo trocar was introduced into the patient?s abdomen. Once intraperitoneal placement was confirmed with direct visualization, pneumoperitoneum was started & was easily obtained.Then, two fingerbreadths above the pubic symphysis and towards the?right lower quadrant, under direct visualization, a 5 mm trocar was then introduced into the patient?s abdomen. and a 3rd one on the left?lower quadrant was placed?in a similar manner. The patient was placed in Trendelenburg position, Inspection revealed normal pelvic str uctures & bilateral ovaries and fallopian tubes. Attention was then drawn to the left fallopian tube. The IP ligament was identified and fallopian tube was then grasped by the fimbria and incised from the mesosalpinx using ligasure device, using cautery for hemostasis and cutting afterwards a bite at a time all the way to the cornual end of the left tube. The same was done?on the?right fallopian t ube. Good hemostasis was noted from both fallopian tube sites and the operative site. Specimen were then removed from the patient?s abdomen. Copious irrigation was done. Once good hemostasis was noted from the patient?s abdomen, pneumoperitoneum was deflated and all trocars were removed. Infraumbilical fascia was closed with 0 Vicryl and interrupted suture. The skin was closed with 4-0 Vicryl. The Right and left?lower quadrant ports were closed with 0 Vicryl. Bupivicaine 0.25 10 cc were injected subcuticularly in the 3 incisions. Then speculum was put back in the vagina inspection revealed?hemostasis at the site of the tenaculum, the?humi manipulator was removed? and Sanford was draining clear urine was taken out too. Sponge, lap and needle counts were correct x2. The patient was taken to the recovery room in stable condition.
[2023-04-15] MEDS: Acetaminophen 1,000 MG/100 ML PIGGYBACK 400 MG IV (11:44)
[2023-04-15] MEDS: ondansetron HCL 4 MG/2 ML VIAL IVPUSH (11:49)
[2023-04-15] MEDS: oxyCODONE HCl Immed Release 5 MG TABLET PO (11:49)
[2023-04-15] MEDS: Ondansetron ODT 4 MG TAB.RAPDIS TRANSLINGU (13:15)
== END 2023-04-15 13:25 | disposition home or self-care (01) ==
PROVIDERS: Nurse Practitioner; Visit Provider Obstetrics & Gynecology
PROC: (CPT 58670; principal; 2023-04-15 10:40)
DX: Z30.2 Encounter for sterilization (principal)
CPT/HCPCS: 58661; 81025; 88302; J0131; J0665; J1100; J1170; J2250; J2405; J2704; J3010

== ENCOUNTER → 2023-04-15 08:38 | Outpatient (BNV) | payer MEDICAID, SELFPAY | PROVIDERS: Visit Provider Obstetrics & Gynecology | DX: Z30.2 Encounter for sterilization (principal) | CPT/HCPCS: 58661 ==

== ENCOUNTER 2023-04-28 12:35 | Outpatient (AMB) | payer MEDICAID, SELFPAY ==
--- NOTE | 2023-04-28 12:51 | A.OFFVIS_ITS ---
Intake Vital Signs 04/28/23 12:55 Height 5 ft 3 in Weight 185 lb BMI 32.8 BP 116/68 Intake Visit Reasons: post op Allergies No Known Allergies [No Known Allergies*] Allergy (Verified 04/15/23 08:58) HPI HPI Comments History of Present Illness Details The patient is presenting 2 weeks post laparoscopic bilateral salpingectomy. The patient has no complaints. No feverishness, chills, no pain at the incision sites, no GI/ symptoms. The pathology showed bilateral normal fallopian tubes with no evidence of abnormal pathology. [facility] Surgical History No pertinent past surgical history Family History Mother Hx of thyroid disease Hx of chronic inflammatory arthritis Father No problems noted. Maternal Grandmother History of high blood pressure Diabetes Maternal Grandfather No problems noted. Paternal Grandmother No problems noted. Paternal Grandfather Hx of schizophrenia Social History Household Members: Spouse and Children Alcohol intake: never Comment: counts correct Patient Tobacco Use Status: Never used Tobacco Sexual orientation: Straight/Heterosexual Gender identity: Female Female Reproductive History Menstrual Age of Menarche: 10 Physical Exam Vital Signs: Last Vital Signs BP 116/68 04/28/23 12:55 BMI result Body Mass Index 32.8 GI Other: Incisions= clear/dry/intact Palpation (GI): Soft to palpation, not firm and nontender Assessment & Plan Assessment & Plan (1) Sterilization: Comment: Two weeks post laparoscopic bilateral salpingectomies Code(s): Z30.2 - Encounter for sterilization Plan: Discussed with the patient the procedure, the intraoperative findings, and pathology results within normal limits. In addition, discussed with the patient the failure rate of the procedure. The patient was instructed to take a test if she misses her periods and to call for bleeding fever, abdominal pain, nausea or vomiting. All questions answered the patient verbalized understanding. Coding Level of Care Code Est Pt Level 3 (11505) Diagnoses Sterilization Z30.2
[2023-04-28 12:55] VITALS: BP 116/68; BMI 32.8
== END 2023-04-28 13:15 | disposition home or self-care (01) ==
PROVIDERS: Visit Provider Obstetrics & Gynecology
DX: Z30.2 Encounter for sterilization (principal)
CPT/HCPCS: 99213

== ENCOUNTER → 2023-04-28 12:35 | Outpatient (BNVA) | payer MEDICAID, SELFPAY | PROVIDERS: Visit Provider Obstetrics & Gynecology | DX: Z48.816 Encounter for surgical aftercare following surgery on the genitourinary system (principal) | CPT/HCPCS: 99212 ==